=== PATIENT | male | born 1945 | race Caucasian/White ===

== ENCOUNTER 2017-09-06 17:10 | Inpatient (IN) | payer OTHER, MEDICARE ==
[~2017-09-06] VITALS: Ht 193 cm; Wt 75.2 kg
[2017-09-06 18:35] LABS: Calcium, Ionized (POC) 1.18 mmol/L (1.10-1.46); Chloride (POC) 92 mmol/L (98-108); Creatinine (POC) 0.7 mg/dL (0.8-1.3); Glucose (ISTAT POC) 155 mg/dL (70-99); Hemoglobin (POC) 12.6 g/dL (13.5-17.5); Potassium (POC) 3.3 mmol/L (3.5-5.5); Sodium (POC) 130 mmol/L (135-148); Total CO2 (POC) 28 mmol/L (21-32)
[2017-09-06] MEDS ORDERED: DOCU100 PO (18:44)
[2017-09-06] MEDS ORDERED: [UNRECOGNIZED DRUG - CODE] PO (18:44)
[2017-09-06] MEDS ORDERED: METCAR500 PO (18:45)
[2017-09-06] MEDS ORDERED: Coenzyme Q10200 M2 PO (18:46)
[2017-09-06] MEDS ORDERED: TRAM50 PO (18:46)
[2017-09-06] MEDS ORDERED: DAILY VALUE1 EACH PO (18:46)
[2017-09-06] MEDS ORDERED: CHOL10002 PO (18:47)
[2017-09-06 19:00] LABS: BASOPHILS ABSOLUTE AUTO 0.02 K/mm3 (0.00-0.23); BASOPHILS PERCENT AUTO 0 % (0-2); EOSINOPHILS ABSOLUTE AUTO 0.01 K/mm3 (0.00-0.68); EOSINOPHILS PERCENT AUTO 0 % (0-6); Hematocrit 35.9 % (37.0-53.0); Hemoglobin 12.7 g/dL (13.5-17.5); IMMATURE GRAN ABSOLUTE AUTO 0.03 K/mm3 (0.00-0.10); IMMATURE GRAN PERCENT AUTO 0 % (0-1); LYMPHOCYTES ABSOLUTE AUTO 1.77 K/mm3 (0.84-5.20); LYMPHOCYTES PERCENT AUTO 17 % (21-46); MONOCYTES ABSOLUTE AUTO 0.45 K/mm3 (0.16-1.47); MONOCYTES PERCENT AUTO 4 % (4-13); Mean Corpuscular HGB 34.8 pg (26.0-34.0); Mean Corpuscular HGB Conc 35.4 g/dL (31.5-36.5); Mean Corpuscular Volume 98 fL (80-100); Mean Platelet Volume 9.3 fL (9.1-12.4); NEUTROPHILS ABSOLUTE AUTO 8.19 K/mm3 (1.96-9.15); NEUTROPHILS PERCENT AUTO 78 % (41-73); Platelet Count 218 K/mm3 (150-400); RDW Coefficient Variation 12.8 % (11.7-14.2); RDW Standard Deviation 46.1 fL (35.1-46.3); Red Blood Cell Count 3.65 M/mm3 (4.30-5.90); White Blood Cell Count 10.47 K/mm3 (4.00-11.30)
[2017-09-06 19:16] LABS: International Normalized Ratio 0.99; Prothrombin Time Results 10.3 Sec (9.7-11.5)
[2017-09-06 20:39] LABS: Alanine Aminotransfer (ALT/SGP 18 U/L (12-78); Albumin, Blood 4.2 g/dL (3.4-5.0); Albumin/Globulin Ratio 1.2 (0.8-1.8); Alk Phos 63 U/L (50-136); Anion Gap 6 mmol/L (6-16); Aspartate Aminotrans (AST/SGOT 17 U/L (12-37); Blood Urea Nitrogen 12 mg/dL (8-24); Bun/Creatinine Ratio 17.6 (12.0-20.0); CO2, Blood 30 mmol/L (21-32); Calcium, Blood 10.3 mg/dL (8.5-10.1); Chloride, Blood 95 mmol/L (98-108); Creatinine, Blood 0.68 mg/dL (0.60-1.20); Globulin, Blood 3.6 g/dL (2.2-4.0); Glomerular Filtration Rate >60 (60-); Glucose, Blood 149 mg/dL (70-99); Potassium, Blood 3.3 mmol/L (3.5-5.5); Sodium, Blood 131 mmol/L (136-145); Total Protein, Blood 7.8 g/dL (6.4-8.2)
[2017-09-06 21:32] LABS: Anion Gap 10 mmol/L (6-16); Blood Urea Nitrogen 12 mg/dL (8-24); Bun/Creatinine Ratio 17.8 (12.0-20.0); CO2, Blood 28 mmol/L (21-32); Calcium, Blood 9.6 mg/dL (8.5-10.1); Chloride, Blood 95 mmol/L (98-108); Creatinine, Blood 0.68 mg/dL (0.60-1.20); Glomerular Filtration Rate >60 (60-); Glucose, Blood 153 mg/dL (70-99); Potassium, Blood 3.6 mmol/L (3.5-5.5); Sodium, Blood 133 mmol/L (136-145)
[2017-09-07 05:41] LABS: BASOPHILS ABSOLUTE AUTO 0.01 K/mm3 (0.00-0.23); BASOPHILS PERCENT AUTO 0 % (0-2); EOSINOPHILS PERCENT AUTO 0 % (0-6); Hematocrit 35.3 % (37.0-53.0); Hemoglobin 12.3 g/dL (13.5-17.5); IMMATURE GRAN ABSOLUTE AUTO 0.02 K/mm3 (0.00-0.10); IMMATURE GRAN PERCENT AUTO 0 % (0-1); LYMPHOCYTES ABSOLUTE AUTO 1.54 K/mm3 (0.84-5.20); LYMPHOCYTES PERCENT AUTO 15 % (21-46); MONOCYTES PERCENT AUTO 5 % (4-13); Mean Corpuscular HGB 34.6 pg (26.0-34.0); Mean Corpuscular HGB Conc 34.8 g/dL (31.5-36.5); Mean Corpuscular Volume 99 fL (80-100); Mean Platelet Volume 9.6 fL (9.1-12.4); NEUTROPHILS ABSOLUTE AUTO 8.29 K/mm3 (1.96-9.15); NEUTROPHILS PERCENT AUTO 80 % (41-73); Platelet Count 208 K/mm3 (150-400); RDW Coefficient Variation 13.1 % (11.7-14.2); RDW Standard Deviation 47.8 fL (35.1-46.3); Red Blood Cell Count 3.56 M/mm3 (4.30-5.90); White Blood Cell Count 10.36 K/mm3 (4.00-11.30)
[2017-09-07 06:03] LABS: Anion Gap 9 mmol/L (6-16); Blood Urea Nitrogen 16 mg/dL (8-24); Bun/Creatinine Ratio 25.2 (12.0-20.0); CO2, Blood 27 mmol/L (21-32); Calcium, Blood 9.4 mg/dL (8.5-10.1); Chloride, Blood 98 mmol/L (98-108); Creatinine, Blood 0.64 mg/dL (0.60-1.20); Glomerular Filtration Rate >60 (60-); Glucose, Blood 145 mg/dL (70-99); Potassium, Blood 3.9 mmol/L (3.5-5.5); Sodium, Blood 134 mmol/L (136-145)
[2017-09-08 11:47] LABS: Prostate Specific Antigen 0.593 ng/mL (0.000-4.000)
[2017-09-09 04:12] LABS: BASOPHILS ABSOLUTE AUTO 0.01 K/mm3 (0.00-0.23); BASOPHILS PERCENT AUTO 0 % (0-2); EOSINOPHILS ABSOLUTE AUTO 0.02 K/mm3 (0.00-0.68); EOSINOPHILS PERCENT AUTO 0 % (0-6); Hematocrit 30.1 % (37.0-53.0); Hemoglobin 10.6 g/dL (13.5-17.5); IMMATURE GRAN ABSOLUTE AUTO 0.03 K/mm3 (0.00-0.10); IMMATURE GRAN PERCENT AUTO 0 % (0-1); LYMPHOCYTES ABSOLUTE AUTO 2.18 K/mm3 (0.84-5.20); LYMPHOCYTES PERCENT AUTO 24 % (21-46); MONOCYTES ABSOLUTE AUTO 0.52 K/mm3 (0.16-1.47); MONOCYTES PERCENT AUTO 6 % (4-13); Mean Corpuscular HGB 34.8 pg (26.0-34.0); Mean Corpuscular HGB Conc 35.2 g/dL (31.5-36.5); Mean Corpuscular Volume 99 fL (80-100); Mean Platelet Volume 8.9 fL (9.1-12.4); NEUTROPHILS ABSOLUTE AUTO 6.43 K/mm3 (1.96-9.15); NEUTROPHILS PERCENT AUTO 70 % (41-73); Platelet Count 171 K/mm3 (150-400); RDW Coefficient Variation 13.1 % (11.7-14.2); RDW Standard Deviation 46.8 fL (35.1-46.3); Red Blood Cell Count 3.05 M/mm3 (4.30-5.90); White Blood Cell Count 9.19 K/mm3 (4.00-11.30)
[2017-09-09 04:33] LABS: Alanine Aminotransfer (ALT/SGP 15 U/L (12-78); Albumin/Globulin Ratio 0.9 (0.8-1.8); Alk Phos 40 U/L (50-136); Anion Gap 6 mmol/L (6-16); Aspartate Aminotrans (AST/SGOT 13 U/L (12-37); Bilirubin, Total 0.8 mg/dL (0.1-1.0); Blood Urea Nitrogen 14 mg/dL (8-24); Bun/Creatinine Ratio 23.3 (12.0-20.0); CO2, Blood 30 mmol/L (21-32); Calcium, Blood 8.5 mg/dL (8.5-10.1); Chloride, Blood 99 mmol/L (98-108); Globulin, Blood 3.4 g/dL (2.2-4.0); Glomerular Filtration Rate >60 (60-); Glucose, Blood 114 mg/dL (70-99); Potassium, Blood 3.4 mmol/L (3.5-5.5); Sodium, Blood 135 mmol/L (136-145); Total Protein, Blood 6.4 g/dL (6.4-8.2)
[2017-09-10 04:10] LABS: BASOPHILS ABSOLUTE AUTO 0.01 K/mm3 (0.00-0.23); BASOPHILS PERCENT AUTO 0 % (0-2); EOSINOPHILS ABSOLUTE AUTO 0.06 K/mm3 (0.00-0.68); EOSINOPHILS PERCENT AUTO 1 % (0-6); Hematocrit 28.2 % (37.0-53.0); Hemoglobin 9.7 g/dL (13.5-17.5); IMMATURE GRAN ABSOLUTE AUTO 0.04 K/mm3 (0.00-0.10); IMMATURE GRAN PERCENT AUTO 1 % (0-1); LYMPHOCYTES ABSOLUTE AUTO 2.35 K/mm3 (0.84-5.20); LYMPHOCYTES PERCENT AUTO 33 % (21-46); MONOCYTES ABSOLUTE AUTO 0.48 K/mm3 (0.16-1.47); MONOCYTES PERCENT AUTO 7 % (4-13); Mean Corpuscular HGB 34.2 pg (26.0-34.0); Mean Corpuscular HGB Conc 34.4 g/dL (31.5-36.5); Mean Corpuscular Volume 99 fL (80-100); Mean Platelet Volume 8.9 fL (9.1-12.4); NEUTROPHILS PERCENT AUTO 58 % (41-73); Platelet Count 160 K/mm3 (150-400); RDW Coefficient Variation 12.7 % (11.7-14.2); RDW Standard Deviation 45.9 fL (35.1-46.3); Red Blood Cell Count 2.84 M/mm3 (4.30-5.90); White Blood Cell Count 7.04 K/mm3 (4.00-11.30)
[2017-09-10 04:38] LABS: Alanine Aminotransfer (ALT/SGP 13 U/L (12-78); Albumin, Blood 2.7 g/dL (3.4-5.0); Albumin/Globulin Ratio 0.8 (0.8-1.8); Alk Phos 36 U/L (50-136); Anion Gap 5 mmol/L (6-16); Aspartate Aminotrans (AST/SGOT 12 U/L (12-37); Bilirubin, Total 0.7 mg/dL (0.1-1.0); Blood Urea Nitrogen 11 mg/dL (8-24); Bun/Creatinine Ratio 16.5 (12.0-20.0); CO2, Blood 32 mmol/L (21-32); Calcium, Blood 8.5 mg/dL (8.5-10.1); Chloride, Blood 100 mmol/L (98-108); Creatinine, Blood 0.67 mg/dL (0.60-1.20); Globulin, Blood 3.2 g/dL (2.2-4.0); Glomerular Filtration Rate >60 (60-); Glucose, Blood 121 mg/dL (70-99); Potassium, Blood 3.2 mmol/L (3.5-5.5); Sodium, Blood 137 mmol/L (136-145); Total Protein, Blood 5.9 g/dL (6.4-8.2)
[2017-09-11 01:41] LABS: Source, Urine Catheter
[2017-09-11 01:52] LABS: Appearance, Urine Hazy (Clear); Bilirubin, Urine Neg (Neg); Blood, Urine Neg (Neg); Color, Urine Yellow (P-Yellow); Glucose Qualitative, Urine Neg (Neg); Ketones, Urine Neg (Neg); Leukocyte Esterase, Urine Neg (Neg); Nitrite, Urine Neg (Neg); Protein, Urine Neg (Neg); Urobilinogen, Urine NORM (Normal)
[2017-09-11 02:00] LABS: Amorphous Mod (0-Heavy); Bacteria Few /hpf; Red Blood Cells, Urine 0-2 /hpf (0-2); Squamous Epithelial Cells Not Seen /hpf (Few); White Blood Cells, Urine 0-2 /hpf (0-5)
[2017-09-11 08:59] LABS: Anion Gap 7 mmol/L (6-16); Blood Urea Nitrogen 13 mg/dL (8-24); Bun/Creatinine Ratio 21.3 (12.0-20.0); CO2, Blood 30 mmol/L (21-32); Calcium, Blood 8.7 mg/dL (8.5-10.1); Chloride, Blood 98 mmol/L (98-108); Creatinine, Blood 0.61 mg/dL (0.60-1.20); Glomerular Filtration Rate >60 (60-); Glucose, Blood 126 mg/dL (70-99); Magnesium, Blood 1.9 mg/dL (1.6-2.4); Sodium, Blood 135 mmol/L (136-145)
[2017-09-12 05:24] LABS: Anion Gap 6 mmol/L (6-16); Blood Urea Nitrogen 14 mg/dL (8-24); Bun/Creatinine Ratio 22.5 (12.0-20.0); CO2, Blood 31 mmol/L (21-32); Calcium, Blood 9.1 mg/dL (8.5-10.1); Chloride, Blood 99 mmol/L (98-108); Creatinine, Blood 0.62 mg/dL (0.60-1.20); Glomerular Filtration Rate >60 (60-); Glucose, Blood 123 mg/dL (70-99); Potassium, Blood 3.3 mmol/L (3.5-5.5); Sodium, Blood 136 mmol/L (136-145)
[2017-09-13 05:55] LABS: Anion Gap 8 mmol/L (6-16); Blood Urea Nitrogen 14 mg/dL (8-24); Bun/Creatinine Ratio 22.9 (12.0-20.0); CO2, Blood 30 mmol/L (21-32); Calcium, Blood 9.2 mg/dL (8.5-10.1); Chloride, Blood 98 mmol/L (98-108); Creatinine, Blood 0.61 mg/dL (0.60-1.20); Glomerular Filtration Rate >60 (60-); Glucose, Blood 140 mg/dL (70-99); Potassium, Blood 3.2 mmol/L (3.5-5.5); Sodium, Blood 136 mmol/L (136-145)
[2017-09-15 05:10] LABS: Anion Gap 7 mmol/L (6-16); Blood Urea Nitrogen 22 mg/dL (8-24); Bun/Creatinine Ratio 32.7 (12.0-20.0); CO2, Blood 29 mmol/L (21-32); Calcium, Blood 8.8 mg/dL (8.5-10.1); Chloride, Blood 100 mmol/L (98-108); Creatinine, Blood 0.67 mg/dL (0.60-1.20); Glomerular Filtration Rate >60 (60-); Glucose, Blood 119 mg/dL (70-99); Magnesium, Blood 2.1 mg/dL (1.6-2.4); Potassium, Blood 3.7 mmol/L (3.5-5.5); Sodium, Blood 136 mmol/L (136-145)
[2017-09-17 04:54] LABS: BASOPHILS ABSOLUTE AUTO 0.02 K/mm3 (0.00-0.23); BASOPHILS PERCENT AUTO 0 % (0-2); EOSINOPHILS ABSOLUTE AUTO 0.05 K/mm3 (0.00-0.68); EOSINOPHILS PERCENT AUTO 1 % (0-6); Hematocrit 29.2 % (37.0-53.0); Hemoglobin 10.1 g/dL (13.5-17.5); IMMATURE GRAN ABSOLUTE AUTO 0.04 K/mm3 (0.00-0.10); IMMATURE GRAN PERCENT AUTO 0 % (0-1); LYMPHOCYTES ABSOLUTE AUTO 2.65 K/mm3 (0.84-5.20); LYMPHOCYTES PERCENT AUTO 28 % (21-46); MONOCYTES ABSOLUTE AUTO 0.42 K/mm3 (0.16-1.47); MONOCYTES PERCENT AUTO 4 % (4-13); Mean Corpuscular HGB 34.1 pg (26.0-34.0); Mean Corpuscular HGB Conc 34.6 g/dL (31.5-36.5); Mean Corpuscular Volume 99 fL (80-100); Mean Platelet Volume 10.3 fL (9.1-12.4); NEUTROPHILS ABSOLUTE AUTO 6.39 K/mm3 (1.96-9.15); NEUTROPHILS PERCENT AUTO 67 % (41-73); Platelet Count 192 K/mm3 (150-400); RDW Coefficient Variation 12.9 % (11.7-14.2); RDW Standard Deviation 46.3 fL (35.1-46.3); Red Blood Cell Count 2.96 M/mm3 (4.30-5.90); White Blood Cell Count 9.57 K/mm3 (4.00-11.30)
[2017-09-17 05:19] LABS: Alanine Aminotransfer (ALT/SGP 19 U/L (12-78); Albumin, Blood 2.8 g/dL (3.4-5.0); Anion Gap 9 mmol/L (6-16); Aspartate Aminotrans (AST/SGOT 10 U/L (12-37); Blood Urea Nitrogen 21 mg/dL (8-24); Bun/Creatinine Ratio 31.2 (12.0-20.0); CO2, Blood 28 mmol/L (21-32); Calcium, Blood 8.4 mg/dL (8.5-10.1); Chloride, Blood 97 mmol/L (98-108); Creatinine, Blood 0.67 mg/dL (0.60-1.20); Glomerular Filtration Rate >60 (60-); Glucose, Blood 122 mg/dL (70-99); Magnesium, Blood 1.9 mg/dL (1.6-2.4); Phosphorus, Blood 3.1 mg/dL (2.5-4.9); Potassium, Blood 3.7 mmol/L (3.5-5.5); Sodium, Blood 134 mmol/L (136-145)
[2017-09-17 05:21] LABS: Albumin/Globulin Ratio 0.8 (0.8-1.8); Alk Phos 49 U/L (50-136); Bilirubin, Total 0.8 mg/dL (0.1-1.0); Globulin, Blood 3.4 g/dL (2.2-4.0); Total Protein, Blood 6.2 g/dL (6.4-8.2)
[2017-09-19] MEDS ORDERED: AMLO10 PO (10:13)
[2017-09-19] MEDS ORDERED: DONE10 PO (10:14)
[2017-09-19] MEDS ORDERED: LOSARTAN-HCTZ1 EAC1 PO (10:17)
[2017-09-19] MEDS ORDERED: ACET325 PO (10:56)
[2017-09-19] MEDS ORDERED: FINA5 PO (10:57)
[2017-09-19] MEDS ORDERED: METO5A PO (10:57)
[2017-09-19] MEDS ORDERED: MIRT15 PO (10:59)
[2017-09-19] MEDS ORDERED: PANT40 PO (10:59)
== END 2017-09-19 12:43 | disposition home or self-care (01) | DRG 329 ==
LOC: ER 17:10 → SURS 17:11
PROVIDERS: Emergency Medicine; Hospitalist; Internal Medicine; Surgery
PROC: 0DB80ZZ Excision of Small Intestine, Open Approach (ICD-10-PCS; principal; 2017-09-07 10:35)
PROC: 0YQ80ZZ Repair Left Femoral Region, Open Approach (ICD-10-PCS; 2017-09-07 10:35)
DX: K41.90 Unilateral femoral hernia, without obstruction or gangrene, not specified as recurrent (principal); K55.029 Acute infarction of small intestine, extent unspecified; K56.609 Unspecified intestinal obstruction, unspecified as to partial versus complete obstruction; E44.0 Moderate protein-calorie malnutrition; F41.9 Anxiety disorder, unspecified; K59.00 Constipation, unspecified; R05 Cough; E87.6 Hypokalemia; R33.9 Retention of urine, unspecified; Z68.20 Body mass index [BMI] 20.0-20.9, adult; E53.8 Deficiency of other specified B group vitamins; N31.9 Neuromuscular dysfunction of bladder, unspecified
CPT/HCPCS: 36415; 71046; 74019; 74177; 80047; 80048; 80053; 81001; 83605; 83735; 84100; 85014; 85025; 85610; 85730; 86301; 87493; 88307; 93005; 93010; 96360; 96361; 97116; 97162; 97166; 97530; 97535; 99285; C9113; G0103; G0378; G8978; G8979; G8987; G8988; J0295; J0330; J1100; J1885; J2250; J2370; J2405; J2710; J2765; J3010; J3480; J7030; J7040; J7060; J7120; Q9967

== ENCOUNTER 2018-08-10 15:37 | Inpatient (IN) | payer MEDICARE ==
[~2018-08-10] VITALS: Ht 180.3 cm; Wt 76.8 kg
[~2018-08-10 15:37] MED LIST: ACET325 PO; AMLO10 PO; CHOL10002 PO; Coenzyme Q10200 M2 PO; DAILY VALUE1 EACH PO; DOCU100 PO; DONE10 PO; FINA5 PO; LOSARTAN-HCTZ1 EAC1 PO; METCAR500 PO; METO5A PO; MIRT15 PO; PANT40 PO; TRAM50 PO; [UNRECOGNIZED DRUG - CODE] PO
[2018-08-10] MEDS ORDERED: IBUP400 PO (16:25)
[2018-08-10] MEDS ORDERED: Naproxen250 MG PO (16:26)
[2018-08-10] MEDS ORDERED: SENN187 PO (16:28)
[2018-08-10] MEDS ORDERED: GAVILAX17 GM PO (16:29)
[2018-08-10] MEDS ORDERED: ALBU90OI61 INH (16:29)
[2018-08-10] MEDS ORDERED: BISA10S PR (16:30)
[2018-08-11 05:27] LABS: BASOPHILS ABSOLUTE AUTO 0.02 K/mm3 (0.00-0.23); BASOPHILS PERCENT AUTO 0 % (0-2); EOSINOPHILS ABSOLUTE AUTO 0.01 K/mm3 (0.00-0.68); EOSINOPHILS PERCENT AUTO 0 % (0-6); Hematocrit 29.7 % (37.0-53.0); Hemoglobin 10.4 g/dL (13.5-17.5); IMMATURE GRAN ABSOLUTE AUTO 0.34 K/mm3 (0.00-0.10); IMMATURE GRAN PERCENT AUTO 3 % (0-1); LYMPHOCYTES ABSOLUTE AUTO 0.51 K/mm3 (0.84-5.20); LYMPHOCYTES PERCENT AUTO 4 % (21-46); MONOCYTES ABSOLUTE AUTO 1.32 K/mm3 (0.16-1.47); MONOCYTES PERCENT AUTO 10 % (4-13); Mean Corpuscular Volume 100 fL (80-100); Mean Platelet Volume 10.5 fL (9.1-12.4); NEUTROPHILS ABSOLUTE AUTO 11.64 K/mm3 (1.96-9.15); NEUTROPHILS PERCENT AUTO 84 % (41-73); Platelet Count 156 K/mm3 (150-400); RDW Coefficient Variation 12.4 % (11.7-14.2); RDW Standard Deviation 45.4 fL (35.1-46.3); Red Blood Cell Count 2.97 M/mm3 (4.30-5.90); White Blood Cell Count 13.84 K/mm3 (4.00-11.30)
[2018-08-11 05:48] LABS: Anion Gap 9 mmol/L (6-16); Blood Urea Nitrogen 12 mg/dL (8-24); Bun/Creatinine Ratio 20.4 (12.0-20.0); CO2, Blood 25 mmol/L (21-32); Calcium, Blood 8.3 mg/dL (8.5-10.1); Chloride, Blood 100 mmol/L (98-108); Creatinine, Blood 0.59 mg/dL (0.60-1.20); Glomerular Filtration Rate >60 (60-); Glucose, Blood 139 mg/dL (70-99); Magnesium, Blood 1.9 mg/dL (1.6-2.4); Phosphorus, Blood 1.8 mg/dL (2.5-4.9); Potassium, Blood 3.3 mmol/L (3.5-5.5); Sodium, Blood 134 mmol/L (136-145)
--- NOTE | 2018-08-11 07:29 | NUR ---
SHIFT SUMMARY PT A/O USING URINAL INDEPENDENTLY. HAD A COUPLE EPISODES OF LIQ STOOL. REFUSED ANY PAIN MEDS. BLADDER SCAN SHOWED 94ML. HE WAS ABLE TO DOSE ON AND OFF T/O NOC. CALL LIGHT IN REACH
--- NOTE | 2018-08-11 13:31 | NUR ---
History, Chart, Medications and Allergies reviewed before start of procedure. Lungs clear T/O to Auscultation. Patient confirms NPO status and agrees with scheduled surgery.
--- NOTE | 2018-08-11 14:34 | NUR ---
08/11/18 1434 Dayanna Duke PT ON SCHEDULED ANTIBIOTICS AND RECIEVED PRIOR TO ARRIVAL TO OR.
--- NOTE | 2018-08-11 16:46 | NUR ---
POST OP S/P MECKELS DIVERTICULUM ABD SURGERY. POST OP VSS AND IN PROGRESS. PT REPORTS 6/10 PAIN. ALERT AND ORIENTED. LAP SITES TO ABD ARE CDI. GRISSOM IN PLACE WITH DARK ORANGE URINE. IVF INFUSING PER ORDERS. CALL LIGHT WITHIN REACH.
--- NOTE | 2018-08-11 17:45 | NUR ---
BACK PAIN PT COMPLAINS OF CHRONIC BACK PAIN. THIS RN PLACED FOAM MATTRESS PAD ON BED. THIS RN OFFERED KPAD FOR COMFORT AND PT REFUSES. PT REPOSITIONED ON LEFT SIDE WITH PILLOWS. MEDICATED WITH IV FENTANYL.
--- NOTE | 2018-08-11 21:11 | NUR ---
PT STATES THE HOSPITAL BED IS VERY UNCOMFORTABLE, STATES HIS BED ON MEDICAL FLOOR WAS MUCH MORE COMFORTABLE. PT PROVIDED WITH REY NEVAREZ BY PREVIOUS RN CALVIN, EDUCATED ON POSITIONAL DISCOMFORT DURING THE OPERATIVE PROCEDURE AND OFFERED ANALGESIA PER MAR. PT CONTINUES TO COMPLAIN UPON EACH ROUNDING. PT INSTRUCTED ON THE USE OF BED ELEVATION HEAD/FEET, PROVIDED WITH PILLOWS, INSTRUCTED AND ENCOURAGED TO REPOSITION AND CALL FOR ASSISTANCE IF NEEDED
--- NOTE | 2018-08-11 21:52 | NUR ---
PT STATES HE IS VERY UNHAPPY WITH THE BED, REQUESTS THIS RN SPEAK TO MANAGEMENT IN THE MORNING. THIS RN WILL PASS PT'S CONCERN ON TO MANAGER SUPPORT AND PASS ON TO PT'S RN IN THE AM
--- NOTE | 2018-08-12 04:25 | NUR ---
shift summary: vss, no acute changes, pt tolerated clear liquid intake with no n/v, bowel tones hypotactive. pt remained a/0 x 4, cooperative. pt repeatedly reports he is unhappy with the hospital bed, that it is uncomfortable, provided with egg crate. suggested to pt he could have a family member bring in foam mattress from home if he wished. pt requested this RN report his complaint to the charge nurse tomorrow, requested information on who he could complain to. This RN suggested pt request information from patient advocate and will report pt's concern to next shift RN. ramesh catheter remained patent and draining dark yellow clear urine. surgical lap sites c/d/i, no shadowing. Bowel tones hypoactive.
[2018-08-12 04:52] LABS: Magnesium, Blood 1.8 mg/dL (1.6-2.4); Phosphorus, Blood 3.2 mg/dL (2.5-4.9)
--- NOTE | 2018-08-12 09:01 | NUR ---
DR THOMAS RECENTLY HERE.
--- NOTE | 2018-08-12 10:05 | NUR ---
THERAPY WORKING WITH PT.
--- NOTE | 2018-08-12 15:55 | NUR ---
SHIFT SUMMARY PT TOLERATING C.L.. PT NOT PASSING GAS YET BUT BURPING. PT RECENTLY WENT FOR LONG WALK IN HALLWAY WITH ASSIST USING WALKER AND GAITBELT. PT BED CHANGED TO DIFF BED TODAY PER PT REQ. PT BEEN MED FOR PAIN. PT REPORTS FEELING MUCH BETTER TODAY. PT BEEN UP IN CHAIR T/O DAY, NOW IN BED.
[2018-08-13 04:47] LABS: Hematocrit 29.3 % (37.0-53.0); Hemoglobin 10.2 g/dL (13.5-17.5); Mean Corpuscular HGB 34.8 pg (26.0-34.0); Mean Corpuscular HGB Conc 34.8 g/dL (31.5-36.5); Mean Corpuscular Volume 100 fL (80-100); Mean Platelet Volume 9.9 fL (9.1-12.4); Platelet Count 201 K/mm3 (150-400); RDW Coefficient Variation 12.2 % (11.7-14.2); RDW Standard Deviation 44.9 fL (35.1-46.3); Red Blood Cell Count 2.93 M/mm3 (4.30-5.90)
[2018-08-13 05:10] LABS: Albumin, Blood 2.5 g/dL (3.4-5.0); Anion Gap 8 mmol/L (6-16); Blood Urea Nitrogen 17 mg/dL (8-24); Bun/Creatinine Ratio 31.4 (12.0-20.0); CO2, Blood 28 mmol/L (21-32); Calcium, Blood 8.4 mg/dL (8.5-10.1); Chloride, Blood 98 mmol/L (98-108); Creatinine, Blood 0.54 mg/dL (0.60-1.20); Glomerular Filtration Rate >60 (60-); Glucose, Blood 130 mg/dL (70-99); Phosphorus, Blood 1.8 mg/dL (2.5-4.9); Potassium, Blood 3.4 mmol/L (3.5-5.5); Sodium, Blood 134 mmol/L (136-145)
--- NOTE | 2018-08-13 05:57 | NUR ---
SHIFT SUMMARY: PT SLEEPING MOST OF SHIFT. FLUIDS AND ABX INFUSING. ELBERT CLR LIQ. GRISSOM PATENT AND DRAINING. PT REPORTS FEELING ANXIOUS ABOUT GRISSOM COMING OUT TODAY. REFUSING FOR GRISSOM TO BE TAKEN OUT THIS AM. WANTS TO SPEAK WITH THE DOCTOR FIRST. URINE IS DARK IN COLOR. PT STATES PAIN IS TOLERABLE AND DOES NOT WANT ULTRAM FOR PAIN. ABD MOD DISTENDED; GAUZE DRESSINGS CDI. PT REPORTS FEELING A LOT BETTER TODAY. DENIES PASSING FLATUS. AMBULATES W/FWW +1. PT ENCOURAGED TO AMBULATE IN [place].
--- NOTE | 2018-08-13 19:37 | NUR ---
SHIFT SUMMARY PT DRINKING C.L. PT NOT EATING MUCH. PT REPORTS NOT PASSING GAS. PT BEEN UP AND AMBULATED IN HALLWAY WITH ASSIST. PT BEEN ASSISTED WITH ADL'S PRN. PT BEEN PLEASANT AND COOP T/O DAY. PT REPORTS BED FEELING MORE COMFORTABLE THAN OTHER BED.
--- NOTE | 2018-08-14 03:59 | NUR ---
SHIFT SUMMARY: PT HAS DONE WELL THIS SHIFT. POD #3 FOR LAP SML BOWEL RESECTION. DENIES PAIN. NO N/V. CLR LIQ DIET. POOR PO INTAKE T/O NIGHT. PASSING SML AMT OF FLATUS. GRISSOM CATH PATENT AND DRAINING. GRISSOM STILL IN PLACE PER DR ORDER. FLUIDS INFUSING PER EMAR. SLEPT WELL T/O SHIFT. NO CONCERNS AT THIS TIME.
[2018-08-14 05:05] LABS: Anion Gap 9 mmol/L (6-16); Blood Urea Nitrogen 13 mg/dL (8-24); CO2, Blood 28 mmol/L (21-32); Calcium, Blood 7.9 mg/dL (8.5-10.1); Chloride, Blood 97 mmol/L (98-108); Creatinine, Blood 0.59 mg/dL (0.60-1.20); Glomerular Filtration Rate >60 (60-); Glucose, Blood 107 mg/dL (70-99); Potassium, Blood 3.2 mmol/L (3.5-5.5); Sodium, Blood 134 mmol/L (136-145)
--- NOTE | 2018-08-14 07:00 | NUR ---
REPORT FROM DAVON WARD. ASSUMED PT CARE.
--- NOTE | 2018-08-14 07:23 | NUR ---
VSS. PARTS MANAGER AT BEDSIDE FOR VS AND NEEDS. PT DENIES PAIN. DENIES NAUSEA. ASSESSMENT CHARTED.
--- NOTE | 2018-08-14 08:54 | NUR ---
PT MEDICATED PER EMAR. PT SITTING UP IN BED. FINISHED WITH BREAKFAST. DENIES NEEDS. DENIES PAIN, DENIES NAUSEA. REFUSED TO DISCUSS GRISSOM REMOVAL.
--- NOTE | 2018-08-14 10:00 | NUR ---
ASSISTED PT TO RR WITH USE OF WALKER. PT UNSTEADY BUT ABLE TO BALANCE SELF. SMALL LIQUID BROWN STOOL NOTED TO TOILET. LINENS TO BED CHANGED AT THIS TIME. PT ASSISTED TO CHAIR.
--- NOTE | 2018-08-14 10:18 | NUR ---
NEW BAG OF LR STARTED (OTHER BAG LEAKING). IV TO LEFT FA REMOVED PER PT REQUEST. DRESSING PLACED. PT ELBERT WELL.
--- NOTE | 2018-08-14 10:40 | NUR ---
PT TO ROOM TO WORK WITH PT.
--- NOTE | 2018-08-14 11:15 | NUR ---
DR CAM TO ROOM FOR EVAL. PLAN TO ADVANCE DIET TO FULL LIQUID, START PO ABX AND POTASSIUM. DISCUSSED GRISSOM REMOVAL WITH PT. PT REFUSES TO HAVE IT REMOVED DESPITE DR CAM SAYING IT SHOULD COME OUT AND DESPITE DISCUSSION OF RISK FOR INFECTION. PT STATES HE HAS PROSTATE/RETENTION ISSUES AND WILL END UP WANTING IT PUT BACK IN. DISCUSSED IN AND OUT CATHETER WITH PT. PT DECLINED.
--- NOTE | 2018-08-14 12:50 | NUR ---
PT HAD EMESIS, APPROX 200ML. EXPLAINED TO PT TO TAKE IN SMALLER AMOUNTS OF LIQUID. PT VERBALIZED UNDERSTANDING. ANTI EMETIC PROVIDED TO PT.
--- NOTE | 2018-08-14 13:38 | NUR ---
PT DENIES MORE NAUSEA AT THIS TIME. PT ROOM TIDIED.
--- NOTE | 2018-08-14 14:26 | NUR ---
PT MEDICATED WITH POTASSIUM PER EMAR. ELBERT W/O NAUSEA.
--- NOTE | 2018-08-14 15:36 | NUR ---
PT SITTING UP IN BED VISITING WITH FAMILY. NADN. RESP EVEN AND NON LABORED.
--- NOTE | 2018-08-14 17:39 | NUR ---
PT EATING DINNER. PT MEDICATED PER EMAR.
--- NOTE | 2018-08-14 18:12 | NUR ---
PT FINISHED WITH DINNER. DENIES NAUSEA. PT ABX STARTED.
--- NOTE | 2018-08-14 18:29 | NUR ---
IV TO RIGHT AC/UPPER ARM AREA INFILTRATED. NEW 18G IV PLACED TO RIGHT FA. PT ELBERT WELL. OTHER IV REMOVED. DRESSED. PT UP AMB IN HALLS WITH CATHERINE TURCIOS.
--- NOTE | 2018-08-15 05:17 | NUR ---
POD 4 S/P RESECTION. PT VSS T/O NIGHT. DRESSING CDI. PT DENIED PAIN/N/V DURING NIGHT. PT REP +FLATUS AND LIQ STOOL. GRISSOM PATANT W/GOOD OUTPUT. PT UP IN ROOM W/SBA, DENIED DIZZINESS WHEN UP. PT USING CALL LIGHT FOR ASSISTANCE, WILL CONT TO MONITOR UNTIL REP GIVEN TO ONCOMING RN.
[2018-08-15 06:17] LABS: Anion Gap 7 mmol/L (6-16); Blood Urea Nitrogen 11 mg/dL (8-24); Bun/Creatinine Ratio 20.4 (12.0-20.0); CO2, Blood 28 mmol/L (21-32); Chloride, Blood 97 mmol/L (98-108); Creatinine, Blood 0.54 mg/dL (0.60-1.20); Glomerular Filtration Rate >60 (60-); Glucose, Blood 104 mg/dL (70-99); Sodium, Blood 132 mmol/L (136-145)
--- NOTE | 2018-08-15 09:01 | NUR ---
PT AMBULATING HALLS WITH PHYSICAL THERAPY.
--- NOTE | 2018-08-15 10:41 | NUR ---
ABX THERAPY DELAYED FOR K RIDER INFUSION. / K RIDERS WILL BE DELAYED UNTIL ABX COMPLETED, THEN WILL RESUME.
--- NOTE | 2018-08-15 19:00 | NUR ---
SHIFT SUMMARY: POD 4 S/P RESECTION. VSS. DENIES N/V OR PAIN. WORKED WITH P/T THIS MORNING AND TOLERATED WELL. DIET ADVANCED TO REG FOR DINNER, TOLERATING WELL. GRISSOM PATENT AND DRAINING. CATH CARE COMPLETED. DRESSING C/D/I. ENCOURAGE AMBULATION AND UP TO CHAIR FOR MEALS.
--- NOTE | 2018-08-16 04:32 | NUR ---
POD 5 S/ LAP RESECTION. PT VSS T/O NIGHT. DRESSINGS CDI. PT DENIED PAIN. PT ELBERT REG PO, DENIED N/V, IS PASSING FLATUS W/LESS FREQUENT BM. PT UP IN ROOM W/FWW+SBA. PT USING CALL LIGHT FOR ASSISTANCE, PLAN TO D/C HOME TODAY. WILL CONT TO MONITOR UNTIL REP GIVEN TO ONCOMING RN.
[2018-08-16 05:00] LABS: BASOPHILS ABSOLUTE AUTO 0.01 K/mm3 (0.00-0.23); BASOPHILS PERCENT AUTO 0 % (0-2); EOSINOPHILS PERCENT AUTO 3 % (0-6); Hematocrit 27.8 % (37.0-53.0); Hemoglobin 9.7 g/dL (13.5-17.5); IMMATURE GRAN PERCENT AUTO 2 % (0-1); LYMPHOCYTES ABSOLUTE AUTO 0.31 K/mm3 (0.84-5.20); LYMPHOCYTES PERCENT AUTO 5 % (21-46); MONOCYTES ABSOLUTE AUTO 0.49 K/mm3 (0.16-1.47); MONOCYTES PERCENT AUTO 8 % (4-13); Mean Corpuscular HGB 34.2 pg (26.0-34.0); Mean Corpuscular HGB Conc 34.9 g/dL (31.5-36.5); Mean Corpuscular Volume 98 fL (80-100); Mean Platelet Volume 9.2 fL (9.1-12.4); NEUTROPHILS ABSOLUTE AUTO 5.39 K/mm3 (1.96-9.15); NEUTROPHILS PERCENT AUTO 83 % (41-73); Platelet Count 234 K/mm3 (150-400); RDW Coefficient Variation 12.2 % (11.7-14.2); RDW Standard Deviation 43.8 fL (35.1-46.3); Red Blood Cell Count 2.84 M/mm3 (4.30-5.90)
[2018-08-16 05:17] LABS: Anion Gap 8 mmol/L (6-16); Blood Urea Nitrogen 9 mg/dL (8-24); CO2, Blood 28 mmol/L (21-32); Calcium, Blood 7.9 mg/dL (8.5-10.1); Chloride, Blood 98 mmol/L (98-108); Creatinine, Blood 0.56 mg/dL (0.60-1.20); Glomerular Filtration Rate >60 (60-); Glucose, Blood 114 mg/dL (70-99); Potassium, Blood 3.3 mmol/L (3.5-5.5); Sodium, Blood 134 mmol/L (136-145)
--- NOTE | 2018-08-16 18:58 | NUR ---
SHIFT SUMMARY PT A&OX4, VSS. 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 DENIES PAIN. ELBERT PO, DENIES N&V. AMB SBA W/FWW TO BRP AND HALLWAYS. 18G LFA, ABX AND POTASSIUM INFUSED PER EMAR. PLAN IS FOR DC TOMORROW. WCTM & TX PER EMAR UNTIL REPORT GIVEN TO ONCOMING NOC RN.
--- NOTE | 2018-08-17 05:07 | NUR ---
SHIFT SUMMARY: NO ACUTE CHANGES OVER NIGHT. PT POD 6 LAP SMALL BOWEL RESEC. INSICION TO ABD C/D/I. ABD SOFT WITH VERY MILD DISTENTION. PT DENIES N/V AND PAIN. SLEEPING MOST OF SHIFT. REPORTS PASSING FLATUS. LIQUID BM X1. PT SBA W/FWW TO BRP. ELBERT ACITIVTY WELL. SALINE LOCKED AFTER 2ND BAG OF POTASSIUM. PLAN FOR POSSIBLE D/C HOME TODAY.
[2018-08-17] MEDS ORDERED: ACET325 PO (09:15)
[2018-08-17] MEDS ORDERED: Acidophilus La100 GM PO (09:16)
--- NOTE | 2018-08-17 11:03 | NUR ---
SHIFT SUMMARY PT A&OX4, VSS, LEFT FLOOR VIA WC WITH ESCORT TO GO HOME WITH TWO MALE FRIENDS WITH PERSONAL POSSESSIONS INCLUDING DISCHARGE PACKET. DISCHARGE INSTRUCTIONS GIVEN. PT REP UNDERSTANDING THOSE INSTRUCTIONS INCLUDING FU WITH SURGEON IN 2 WKS AND FU WITH PCP IN 1-2 WKS, WOUND CARE, SHOWER OKAY. IV DC'D.
== END 2018-08-17 10:45 | disposition home or self-care (01) | DRG 854 ==
LOC: ER 15:37 → MEDS 17:29 → SURS 08-11 15:02
PROVIDERS: Hospitalist; Surgery; ADMIT Internal Medicine
PROC: 0DTJ4ZZ Resection of Appendix, Percutaneous Endoscopic Approach (ICD-10-PCS; 2018-08-11)
PROC: 0DT84ZZ Resection of Small Intestine, Percutaneous Endoscopic Approach (ICD-10-PCS; principal; 2018-08-11 12:15)
DX: A41.9 Sepsis, unspecified organism (principal); A04.9 Bacterial intestinal infection, unspecified; K52.9 Noninfective gastroenteritis and colitis, unspecified; K59.00 Constipation, unspecified; J44.9 Chronic obstructive pulmonary disease, unspecified; E87.6 Hypokalemia; Q43.0 Meckel's diverticulum (displaced) (hypertrophic); K37 Unspecified appendicitis
CPT/HCPCS: 36415; 80048; 80069; 82947; 83735; 84100; 85025; 85027; 88304; 88307; 93005; 93010; 94640; 94760; 96374; 96375; 97116; 97161; 97530; 99285-25; C9113; J0696; J1100; J1650; J1885; J2370; J2405; J3010; J3475; J3480; J7042; J7050; J7060; J7120